=== PATIENT | female | born 1960 | race Caucasian/White ===

== ENCOUNTER 2016-12-04 06:49 | Observation (INO) | payer OTHER ==
[~2016-12-04 06:49] MED LIST: LR 1,000 ML IV ONE; PHENAZOPYRIDINE HCL 200 MG TAB PO ONE; ceFAZolin 2 GM/DEXTROSE 100 ML IV ONE
[2016-12-04] MEDS ORDERED: LIDOCAINE 1% 2 ML INJ ONE (06:54)
[2016-12-04] MEDS ORDERED: LIDOCAINE 1% 5 ML SDV ID PRN (07:32)
[2016-12-04] MEDS ORDERED: LR 1,000 ML IV ONE (07:32)
[2016-12-04] MEDS ORDERED: MIDAZOLAM 2 MG/2 ML VIAL ONE (08:02)
[2016-12-04] MEDS ORDERED: SCOPOLAMINE HYDROBROMIDE 1.5 MG PATCH TD ONE ×2 (08:02→08:30)
[2016-12-04] MEDS ORDERED: PROPOFOL/EMULSION 500 MG/50 ML BOTTLE IV ONE (08:16)
[2016-12-04] MEDS ORDERED: fentaNYL 100 MCG/2 ML INJ ONE ×4 (08:16→11:24)
[2016-12-04] MEDS ORDERED: PROPOFOL 200 MG/20 ML VIAL ONE ×2 (08:16→10:48)
[2016-12-04] MEDS ORDERED: ROCURONIUM 50 MG/5 ML VIAL ONE (08:25)
[2016-12-04] MEDS ORDERED: LIDOCAINE 2% 5 ML SDV ONE (08:25)
[2016-12-04] MEDS ORDERED: ONDANSETRON 4 MG/2 ML VIAL ONE (08:25)
[2016-12-04] MEDS ORDERED: DEXAMETHASONE 4 MG/ML VIAL ONE (08:25)
[2016-12-04] MEDS ORDERED: GLYCOPYRROLATE 0.2 MG/1 ML VIAL ONE (08:26)
[2016-12-04] MEDS ORDERED: BUPIVACAINE/EPI 0.5% 30 ML SDV ONE (08:30)
[2016-12-04] MEDS ORDERED: SUGAMMADEX SODIUM 200 MG/2 ML VIAL IVP ONE (10:48)
[2016-12-04] MEDS ORDERED: KETOROLAC 30 MG/1 ML SDV ONE (10:48)
[2016-12-04] MEDS ORDERED: HYDROCODONE/APAP 5/325 TAB PO PRN (11:21)
[2016-12-04] MEDS ORDERED: ZOLPIDEM TARTRATE 5 MG TAB PO PRN (11:21)
[2016-12-04] MEDS ORDERED: HYDROmorphONE/DILAUDID 1 MG/ML SYR ONE (11:24)
--- NOTE | 2016-12-04 11:27 | POSTOPPROG ---
Post Op Note Date of Operation: 12/04/16 Surgeon: Angelo Sandoval Steel Tester: Tracy Donovan Anesthesiologist: Donald Anesthesia: GET(General Endotracheal) Pre-op Diagnosis: vaginal prolapse, stress and anal incontinence Post-op Diagnosis: same Procedure: sacrocolpopexy, TVT sling, anal sphincteroplasty, cysto Findings: ureters function at end of case Inf/Abcess present in the surg proc area at time of surgery?: No EBL: Minimal Complications: None
[2016-12-04] MEDS ORDERED: LR 1,000 ML IV SCH (11:30)
[2016-12-04] MEDS: KETOROLAC 30 MG/1 ML SDV IVP SCH ×3 (12:22→22:25)
[2016-12-04] MEDS: OXYCODONE/APAP 5/325 TAB PO PRN ×3 (15:15→20:18)
[2016-12-04 16:33] VITALS: RESP 16
[2016-12-05] MEDS: KETOROLAC 30 MG/1 ML SDV IVP SCH (04:47)
[2016-12-05] MEDS: OXYCODONE/APAP 5/325 TAB PO PRN ×2 (06:35→10:48)
[2016-12-05 08:39] VITALS: BP 87/54; PULSE 67; TEMP 98.1; O2SAT 95
[2016-12-05] MEDS ORDERED: Herbals/Supplements -Info Only PO SCH (09:00)
[2016-12-05] MEDS ORDERED: ESTRADIOL 1 MG TAB PO SCH (09:00)
[2016-12-05] MEDS ORDERED: MAGNESIUM OXIDE 400 MG TAB PO SCH (09:00)
--- NOTE | 2016-12-19 11:53 | GOP ---
[f rep st] OPERATIVE REPORT DATE OF OPERATION: 12/04/2016 SURGEON: Angelo Sandoval MD SECOND STEWARD: Tracy Donovan CFA ANESTHESIA: General. PREOPERATIVE DIAGNOSIS: 1. Cystocele. 2. Vaginal prolapse. 3. Rectocele. 4. Stress urinary incontinence. 5. Anal incontinence. POSTOPERATIVE DIAGNOSIS: 1. Cystocele. 2. Vaginal prolapse. 3. Rectocele. 4. Stress urinary incontinence. 5. Anal incontinence. 6. Endometriosis. PROCEDURE PERFORMED: 1. Robotic-assisted laparoscopic sacral colpopexy with mesh. 2. Repair of cystocele and rectocele. 3. Retropubic sling. 4. Anal sphincteroplasty. 5. Cystoscopy. 6. Excision of pelvic peritoneum and endometriosis. FINDINGS: SPECIMENS: Left ovarian fossa peritoneum. ESTIMATED BLOOD LOSS: Scant. DESCRIPTION OF PROCEDURE: The patient was taken to the operating room, where she was identified. G eneral anesthesia was administered and found to be adequate. She was placed in the lithotomy positi on and prepared and draped in normal sterile fashion. A Gonzales catheter was placed in her bladder. A 1 cm infraumbilical incision was made with a scalpel. The Veress needle with the CO2 gas flowing was advanced into the peritoneal cavity. The abdomen was then insufflated with carbon dioxide gas. The 12 mm trocar followed by the laparoscope were then inserted. The upper abdomen was unremarkabl e. Two lateral ports placed on either side under direct visualization. The patient was then placed in Trendelenburg position and the da Paco robot docked on the left side. The instruments were the n brought into the abdominal cavity under direct visualization. The patient was noted to have lesio ns consistent with endometriosis in the left ovarian fossa. The entire peritoneum with overlying en dometriosis was completely excised and sent to pathology. A stent was placed in the vagina. The bl adder was gently dissected off the anterior vaginal wall down to the level of the bladder neck. The rectovaginal space was then entered and the rectum dissected off the posterior vaginal wall down to the level of the perineal body. Measurements were then obtained and the mesh trimmed to size. The sigmoid colon was then retracted laterally. The peritoneum over the sacral promontory was incis ed and the fat pad gently dissected off the anterior longitudinal ligament. The mesh was then broug ht into the abdominal cavity. Three sutures of 4-0 Belton-Fahad were used to attach the distal posterio r mesh to the perineal body. Two additional rows of Belton-Fahad sutures were placed posteriorly. Thre e rows were placed anteriorly to suture the mesh down to the bladder neck and laterally to the parav aginal tissue. The stent was then removed. The sacral arm of the mesh was placed over the promonto ry and the tension adjusted. I then scrubbed back into the case to examine the vagina. The tension was further adjusted to resolve the cystocele and rectocele without undue tension on the vagina. T wo sutures of 2-0 Belton-Fahad were used to attach the sacral arm of the mesh to the anterior longitudin al ligament at the level of the upper first sacral body below the intervertebral disk space. The pe ritoneum was then closed over the entire mesh. The robot was then undocked. The fascia was closed with 0 Vicryl, skin with 4-0 Monocryl and surgical adhesive. Attention was then turned to the sling portion of the procedure. A midurethral incision was made wi th the scalpel. Tunnels were created bilaterally around the urethra toward the retropubic space. T he retropubic trocar was then placed through the left tunnel, redirected around the symphysis pubis and out through a suprapubic stab incision. The sling had been attached prior to placement of the t rocar. The same procedure was performed on the patient's right side. Cystoscopy was then performed . No evidence of bladder nor urethral injury was seen. Both ureters had vigorous jets of urine. T here was no evidence of mesh nor suture within the bladder nor urethra. No obvious pathology was se en. The sling was then adjusted to allow a small mid urethral gap. The vaginal epithelium was clos ed with 2-0 Vicryl, skin with 4-0 Monocryl. Attention was then turned to the vaginal portion of the procedure. A transverse incision was made a long the perineal body. The posterior vaginal epithelium was undermined with the Metzenbaum scissor s and incised sagittally. A semilunar incision was made around the anterior half of the anus. The anal sphincter muscle was then gently dissected free. An overlapping sphincteroplasty was performed with interrupted sutures of 0 Vicryl. The rectovaginal connective tissue was then plicated in the midline also with 0 Vicryl suture and a perineorrhaphy was performed by plicating the transverse per ineal and bulbous spongiosis muscles in the midline. The excess epithelium was then trimmed and olga sed with a running 2-0 Vicryl suture in the vagina and interrupted sutures along the perineal body a nd around the anal sphincter. Vaginal packing was then placed, anesthesia was reversed, and the pat ient taken to the PACU, awake and in stable condition. COMPLICATIONS: None. DISPOSITION: Patient is stable to PACU. /[id number]/MODL
== END 2016-12-05 11:45 | disposition home or self-care (01) ==
LOC: F3E 06:49 → FOB 12:48
PROVIDERS: ADMIT Obstetrics & Gynecology; ATTEND Obstetrics & Gynecology
PROC: 0UB44ZX Excision of Uterine Supporting Structure, Percutaneous Endoscopic Approach, Diagnostic (ICD-10-PCS; principal; 2016-12-04 08:15)
PROC: 0UQG4ZZ Repair Vagina, Percutaneous Endoscopic Approach (ICD-10-PCS; principal; 2016-12-04 08:15)
PROC: 0DQR0ZZ Repair Anal Sphincter, Open Approach (ICD-10-PCS; principal; 2016-12-04 08:15)
PROC: 0TUC4JZ Supplement Bladder Neck with Synthetic Substitute, Percutaneous Endoscopic Approach (ICD-10-PCS; principal; 2016-12-04 08:15)
DX: N81.10 Cystocele, unspecified (principal); N81.6 Rectocele; N39.3 Stress incontinence (female) (male); R15.9 Full incontinence of feces; N80.9 Endometriosis, unspecified
CPT/HCPCS: 46750; 51992; 57425; 58662; G0378; C1763; C1771; J0690; J1100; J1170; J1885; J2250; J2405; J2704; J3010

== ENCOUNTER → 2017-01-30 | Outpatient (CLI) | payer OTHER | LOC: BMCIMAGING 13:12 | PROVIDERS: ATTEND Podiatrist Foot & Ankle Surgery | DX: M79.671 Pain in right foot (principal) ==